=== PATIENT | male | born 1955 | race African-American/Black ===

== ENCOUNTER 2022-08-21 18:34 | Emergency (ER) | payer MEDICARE, OTHER ==
[~2022-08-21] VITALS: Ht 170.2 cm; Wt 72.0 kg
[2022-08-21 19:00] VITALS: O2SAT 98
[2022-08-21 23:03] LABS: BASOPHILS % 0.8 % (0.0-2.0); EOSINOPHILS % 4.3 % (0.0-5.0); HEMATOCRIT. 41.2 % (42.0-52.0); HEMOGLOBIN. 13.2 g/dL (14.0-18.0); LYMPHOCYTES % 36.8 % (20.0-50.0); MEAN CORPUSCULAR HEMOGLOBIN 25.4 pg (28.0-32.0); MEAN CORPUSCULAR VOLUME 79.3 fL (80.0-94.0); MEAN PLATELET VOLUME 8.3 fl (7.4-10.4); MONOCYTES % 14.5 % (2.0-8.0); NEUTROPHILS % 43.6 % (40.0-76.0); PLATELET 226 x1000/uL (130-400); RED BLOOD CELL COUNT 5.19 mill/uL (4.7-6.1); RED CELL DISTRIBUTION WIDTH 13.7 % (11.6-14.6)
[2022-08-21 23:08] LABS: CHLORIDE 110 mEq/L (98-107)
[2022-08-21] MEDS ORDERED: FURO-152 MT (23:38)
[2022-08-22 00:26] VITALS: BP 160/92; PULSE 61; RESP 18; TEMP 98.1
== END 2022-08-22 00:27 | disposition home or self-care (01) ==
LOC: ER 18:45
DX: R60.0 Localized edema (principal); E11.9 Type 2 diabetes mellitus without complications; I10 Essential (primary) hypertension
CPT/HCPCS: 36415; 80053; 83880; 85025; 93005; 99284